=== PATIENT | female | born 1985 | race Asian ===

== ENCOUNTER 2017-06-18 00:01 | Inpatient (IN) | payer SELFPAY ==
[~2017-06-18] VITALS: Ht 160 cm; Wt 71.7 kg
[2017-06-18] MEDS ORDERED: DEXT 5% IV SCH (02:13)
[2017-06-18] MEDS ORDERED: OXYTOCIN IV SCH (02:13)
[2017-06-18] MEDS ORDERED: OXYTOCIN 20 UNITS in DEXT 5% / LACT RING 1,000 ML IV SCH (02:13)
[2017-06-18] MEDS ORDERED: OXYTOCIN 10 UNITS in LACTATED RINGERS 1,000 ML IV SCH (02:13)
[2017-06-18] MEDS ORDERED: LACT RING IV SCH (02:13)
[2017-06-18] MEDS ORDERED: oxyCODONE/APAP 5/325 MG 1 TAB TAB PO PRN ×3 (02:15→16:35)
[2017-06-18] MEDS ORDERED: BUPRENORPHINE 0.3 MG/ML VIAL IV PRN (02:15)
[2017-06-18] MEDS ORDERED: HYDROcodone/APAP 5/325 MG 1 TAB TAB PO PRN ×2 (02:15)
[2017-06-18] MEDS ORDERED: TEMAZEPAM 15 MG CAP PO PRN ×3 (02:15→16:35)
[2017-06-18] MEDS ORDERED: MEASLES, MUMPS, AND RUBELLA 1 VIAL SQVAC PRN ×2 (02:15→16:35)
[2017-06-18] MEDS ORDERED: TRIMETHOBENZAMIDE 200 MG/2 ML SYR IM PRN (02:15)
[2017-06-18] MEDS ORDERED: METHYLERGONOVINE 0.2 MG/ML AMP IM PRN ×2 (02:15→16:35)
[2017-06-18] MEDS ORDERED: MAGNESIUM CITRATE 300 ML BTL PO SCH (02:15)
[2017-06-18] MEDS ORDERED: SIMETHICONE 80 MG TAB.CHEW PO PRN (02:15)
[2017-06-18] MEDS ORDERED: MISOPROSTOL 25 MCG TAB VG SCH (02:25)
[2017-06-18] MEDS ORDERED: MISOPROSTOL 25 MCG TAB ONE (02:30)
[2017-06-18 03:22] LABS: BASOPHILS % (AUTO) 0.4 % (0.0-2.0); EOSINOPHILS # (AUTO) 0.1 K/uL (0-0.4); EOSINOPHILS % (AUTO) 1.6 % (0.0-4.0); HEMOGLOBIN 11.6 g/dL (12.0-16.0); LYMPHOCYTES # (AUTO) 1.5 K/uL (2.5-16.5); LYMPHOCYTES % (AUTO) 20.7 % (20.5-51.1); MEAN CORPUSCULAR HEMOGLOBIN 31 pg (27-31); MEAN CORPUSCULAR HGB CONC 34 g/dL (33-37); MEAN CORPUSCULAR VOLUME 91 fL (80-94); MONOCYTES # (AUTO) 0.8 K/uL (0.8-1.0); MONOCYTES % (AUTO) 10.7 % (1.7-9.3); NEUTROPHILS % (AUTO) 66.6 % (42.2-75.2); PLATELET COUNT (AUTO) 148 K/uL (140-450); RED BLOOD CELL COUNT(AUTO) 3.74 MIL/uL (4.20-5.40); WHITE BLOOD COUNT (AUTO) 7.4 K/uL (4.8-10.8)
[2017-06-18 03:24] LABS: APPEARANCE,URINE CLEAR (CLEAR); BILIRUBIN,URINE NEGATIVE (NEGATIVE); BLOOD, URINE 2+ (NEGATIVE); COLOR,URINE YELLOW (YELLOW); LEUKOCYTE ESTERASE ,URINE NEGATIVE (NEGATIVE); NITRITE, URINE NEGATIVE (NEGATIVE); UGLUCOSE NEGATIVE (NEGATIVE)
[2017-06-18 04:51] LABS: RBC,URINE 11-20 (MOD) /HPF (0-5); WBC,URINE 0-5 (RARE) /HPF (0-5)
[2017-06-18 06:35] VITALS: BP 107/59
[2017-06-18] MEDS ORDERED: FERR-252 PO (07:27)
[2017-06-18] MEDS ORDERED: PREN-546 PO (07:27)
[2017-06-18] MEDS ORDERED: NALBUPHINE 10 MG/ML AMP IVP PRN (08:55)
[2017-06-18] MEDS ORDERED: SODIUM PHOSPHATE 118 ML ENEM RC SCH (09:00)
[2017-06-18] MEDS ORDERED: BISACODYL 10 MG SUPP RC SCH (09:00)
[2017-06-18] MEDS ORDERED: BISACODYL 5 MG TABEC PO SCH (09:00)
--- NOTE | 2017-06-18 09:05 | NUR ---
PATIENT HAS BEEN SCREENED AND CATEGORIZED LOW NUTRITION RISK. PATIENT WILL BE SEEN WITHIN 7 DAYS OF ADMISSION. 06/24/[address]
[2017-06-18] MEDS: LACTATED RINGERS 1,000 ML IV SCH ×2 (09:08→15:28)
[2017-06-18] MEDS ORDERED: ROPIVACAINE 0.2%/NS PREMIX 250 ML EPI ONE (10:39)
[2017-06-18] MEDS ORDERED: OXYTOCIN 10 UNITS/ML VIAL ONE (16:14)
[2017-06-18] MEDS ORDERED: OXYTOCIN 10 UNITS/ML VIAL IM PRN (16:35)
[2017-06-18] MEDS ORDERED: BENZOCAINE/MENTHOL 20%-0.5% 60 GM CAN TP PRN (16:35)
[2017-06-18] MEDS ORDERED: oxyCODONE/APAP 5/325 MG 1 TAB TAB ONE (19:12)
[2017-06-18] MEDS ORDERED: DOCUSATE SOD/SENNA 50/8.6 MG 1 TAB PO SCH ×2 (21:00)
[2017-06-19] MEDS: IBUPROFEN 800 MG TAB PO PRN (06:26)
[2017-06-19 06:49] LABS: HEMATOCRIT 29.1 % (36-48); HEMOGLOBIN 9.9 g/dL (12.0-16.0)
[2017-06-19] MEDS: CALCIUM POLYCARBOPHIL 625 MG TAB PO SCH ×4 (10:13→21:00)
[2017-06-19] MEDS: HYDROcodone/APAP 5/325 MG 1 TAB TAB PO PRN (16:58)
[2017-06-19] MEDS: SENNA 8.6 MG TAB PO SCH (21:24)
[2017-06-20] MEDS: HYDROcodone/APAP 5/325 MG 1 TAB TAB PO PRN (04:59)
[2017-06-20] MEDS: CALCIUM POLYCARBOPHIL 625 MG TAB PO SCH (12:03)
[2017-06-20] MEDS: IBUPROFEN 800 MG TAB PO PRN (12:10)
[2017-06-20] MEDS: SENNA 8.6 MG TAB PO SCH (20:44)
== END 2017-06-20 22:00 | disposition home or self-care (01) | DRG 775 ==
LOC: MLD 00:01 → MFCC 21:15
PROVIDERS: ADMIT Obstetrics & Gynecology; ATTEND Obstetrics & Gynecology
PROC: 10E0XZZ Delivery of Products of Conception, External Approach (ICD-10-PCS; principal; 2017-06-18)
PROC: 10907ZC Drainage of Amniotic Fluid, Therapeutic from Products of Conception, Via Natural or Artificial Opening (ICD-10-PCS; 2017-06-18)
PROC: 3E0P7VZ Introduction of Hormone into Female Reproductive, Via Natural or Artificial Opening (ICD-10-PCS; 2017-06-18)
PROC: 0W8NXZZ Division of Female Perineum, External Approach (ICD-10-PCS; 2017-06-18)
PROC: 00HU33Z Insertion of Infusion Device into Spinal Canal, Percutaneous Approach (ICD-10-PCS; 2017-06-18)
PROC: 3E0R3BZ Introduction of Anesthetic Agent into Spinal Canal, Percutaneous Approach (ICD-10-PCS; 2017-06-18)
DX: O69.81X0 Labor and delivery complicated by cord around neck, without compression, not applicable or unspecified (principal); Z28.21 Immunization not carried out because of patient refusal; Z37.0 Single live birth; Z3A.38 38 weeks gestation of pregnancy; Z82.49 Family history of ischemic heart disease and other diseases of the circulatory system
CPT/HCPCS: 36415; 59200; 59409; 81001; 85018; 85025; 86592; 86886; 86900; 86901; J2590; J2795; J7120